=== PATIENT | male | born 1980 | race Two or more races ===

== ENCOUNTER 2017-02-04 01:04 | Emergency (ER) | payer SELFPAY ==
--- NOTE | 2017-02-04 06:13 | ER ---
ADMIT: 02/04/2017 RM/LOC: ER [facility] MR#: [id number] [facility] [address] [place], [place] [id number] SANJANA BANUELOS [address] [id number] Emergency Room Report SEX: M AGE: 36 : 1980 DATE: 02/04/2017 HISTORY OF PRESENT ILLNESS: Patient is a 36-year-old male, who was brought by Law Enforcement for medical clearance to long term. Allegedly, the patient has a history of hypertension and is compliant with the medication. The patient denies any fall, any accident, any altercation or any trauma. The patient denies any alcohol or drug use or going to start off any medications. Denies any pain or discomfort except for the left elbow pain, which he has had it for some time and is chronic and uses a brace for it. Per Law Enforcement also, the patient was arrested for nondrug and nontrauma related causes. PHYSICAL EXAMINATION: VITAL SIGNS: The patient was alert, oriented, in no pain or distress. HEAD AND NECK: Exam was normal. CHEST: Clear bilaterally. HEART: Normal heart sounds. ABDOMEN: Soft. There are no obvious signs of trauma in the whole body. The patient has normal blood pressure too and vitals are normal too. PLAN: The patient is stable to be discharged to long term, medically cleared to long term to be followed up by the long term physician as needed. Ousmane Welch MD/ leonardo JOB #: [id number] CC: Ousmane Welch MD, Attending Physician Mack Chaudhry MD, Family Physician
== END 2017-02-04 01:10 ==
LOC: ER 01:04
DX: Z02.89 Encounter for other administrative examinations (principal); I10 Essential (primary) hypertension; F17.210 Nicotine dependence, cigarettes, uncomplicated